=== PATIENT | female | born 1945 | race Hispanic/Latino ===

== ENCOUNTER 2017-03-06 18:00 | Emergency (ER) | payer MEDICARE ==
--- NOTE | 2017-03-06 18:04 | ED PDOC ---
Arrival/HPI - General Time Seen by Provider: 03/06/17 18:01 Historian: Patient, EMS - History of Present Illness Narrative History of Present Illness (Text): 03/06/17 18:01 71 y/o female, pmh including a.fibb/hyperlipidemia/allergic rhinitis, taking coumadin daily with last INR check about 2 weeks ago which was 1.99, nkda, biba c/o lt. knee pain and abrasion x 1 hour. Pt. was walking, tripped over the floor mat, sustained the abrasion of the lt. knee, no direct injury to the rt. knee, no LOC, no head or neck injury, no back injury or pain, no dizziness, no numbness or tingling, no chest pain or palpitation prior to the fall, last tetanus over 10 years ago, no other medical or psychological complaints. Past Medical History - Provider Review Nursing Documentation Reviewed: Yes Family/Social History - Physician Review Nursing Documentation Reviewed: Yes Family/Social History: Unknown Family HX Allergies/Home Meds Allergies/Adverse Reactions: Allergies Penicillins Allergy (Verified 03/06/17 18:03) SWELLING Home Medications: Home Meds Medication Instructions Recorded Confirmed Warfarin [Coumadin] 4 mg PO DAILY 03/06/17 03/06/17 Review of Systems - Review of Systems Constitutional: absent: Fatigue, Fevers Eyes: absent: Vision Changes ENT: absent: Hearing Changes Respiratory: absent: SOB, Cough Cardiovascular: absent: Chest Pain Gastrointestinal: absent: Abdominal Pain, Nausea, Vomiting Musculoskeletal: Arthralgias. absent: Back Pain, Neck Pain, Joint Swelling, Myalgias Skin: Other (abrasion). absent: Rash, Pruritis, Skin Lesions, Laceration, Abscess, Ulcer, Cellulitis Psychiatric: absent: Anxiety, Depression, Suicidal Ideation Physical Exam Vital Signs Temp Pulse Resp BP Pulse Ox 03/06/17 19:14 16 99 03/06/17 18:32 98.4 F 81 16 98 03/06/17 18:04 98.4 F 81 16 137/83 95 - Systems Exam Head: Present: Atraumatic, Normocephalic. No: Tenderness, Contusion, Swelling, Ecchymosis, Abrasion, Laceration, Other Pupils: Present: PERRL Extroacular Muscles: Present: EOMI Conjunctiva: Present: Normal Mouth: Present: Moist Mucous Membranes Nose (External): Present: Atraumatic. No: Abrasion, Contusion, Laceration, Lesions Nose (Internal): Present: Normal Inspection, No Active Bleeding. No: Rhinorrhea , Septal Hematoma, Epistaxis Neck: Present: Normal Range of Motion. No: MIDLINE TENDERNESS, Paraspinal Tenderness Respiratory/Chest: Present: Clear to Auscultation, Good Air Exchange. No: Respiratory Distress, Accessory Muscle Use Cardiovascular: Present: Regular Rate and Rhythm, Normal S1, S2. No: Murmurs Abdomen: Present: Normal Bowel Sounds. No: Tenderness, Distention, Peritoneal Signs Back: Present: Normal Inspection. No: Midline Tenderness, Paraspinal Tenderness Upper Extremity: Present: Normal Inspection, Normal ROM, NORMAL PULSES, Capillary Refill < 2s. No: Cyanosis, Edema, Tenderness, Swelling, Deformity Lower Extremity: Present: Normal Inspection, Normal ROM, Neurovascularly Intact , Other (Bilateral knee: lt. knee anterior noted to have 1cm superficial abrasion in diameter with mild +ttp and mild swelling, rt. knee with no tenderness or swelling, no calf tenderness, no laceration, no joint laxity, FROM without limitation, sensation intact, motor 5/5, neurovascular intact. ). No: Edema, Deformity Neurological: Present: GCS=15, CN II-XII Intact, Speech Normal Skin: Present: Warm, Dry, Normal Color. No: Rashes Psychiatric: Present: Alert, Oriented x 3, Normal Insight, Normal Concentration Medical Decision Making ED Course and Treatment: 03/06/17 18:06 -tetanus -tramadol -wound irrigate with saline, clean with betadine, bacitracin and gauze dressing -lt. knee xray, monserrat wrap applied by me with neurovascular intact. 03/06/17 18:43 -INR 1.96 -Lt. knee xray show no fracture or dislocation -Discharge home with bacitracin oinment, tylenol, monserrat wrap, cane, ice compression, clean with soap and water twice daily, follow up with your own pmd and orthopedic within 2 days, return to the ER for any new or worsening signs or symptoms. Your INR today is 1.96, need to follow up with your own pmd and print decorator within 3 days about this result. - Lab Interpretations Lab Results: Lab Results 03/06/17 18:17: PT 21.2 H, INR 1.96 H I have reviewed the lab results: Yes Interpretation: Abnormal lab values (INR 1.96) - RAD Interpretation Radiology Orders: 03/06/17 18:08 KNEE WITH PATELLA LEFT 3 VIEW [RAD] Stat normal radiograph of the left knee Offset Printing Operator: Radiologist - Medication Orders Current Medication Orders: Discontinued Medications Tetanus/Reduced Diphtheria/Acell Pertussis (Boostrix Vaccine Inj) 0.5 ml IM .ONCE ONE Stop: 03/06/17 18:10 Last Admin: 03/06/17 18:28 Dose: 0.5 ml Tramadol/Acetaminophen (Ultracet 37.5/325 Mg) 2 tab PO STAT STA Stop: 03/06/17 18:09 Last Admin: 03/06/17 18:27 Dose: 2 tab - PA / TAPEMAN / Resident Statement MD/DO has reviewed & agrees with the documentation as recorded. Disposition/Present on Arrival - Present on Arrival Any Indicators Present on Arrival: No History of DVT/PE: No History of Uncontrolled Diabetes: No Urinary Catheter: No History of Decub. Ulcer: No - Disposition Have Diagnosis and Disposition been Completed?: Yes Diagnosis: Accidental fall, Knee abrasion, Knee injury, Subtherapeutic international normalized ratio (INR) Disposition: HOME/ ROUTINE Disposition Time: 18:07 Patient Plan: Discharge Condition: IMPROVED Additional Instructions: Discharge home with bacitracin oinment, tylenol, monserrat wrap, cane, ice compression , clean with soap and water twice daily, follow up with your own pmd and orthopedic within 3 days, return to the ER for any new or worsening signs or symptoms. YOUR INR TODAY IS 1.96 AND YOU NEED TO FOLLOW UP WITH YOUR OWN PMD AND LAMINATION MACHINE OPERATOR IN 3 DAYS. Prescriptions: Acetaminophen [Tylenol 325mg tab] 2 tab PO QID PRN #30 tab PRN Reason: Other Bacitracin Ointment [Bacitracin] 1 appl TOP BID #15 g Referrals: Faustino uBtler MD [Staff Provider] - Follow up with primary Marco Diamond MD [Staff Provider] - Follow up with primary Forms: WORK NOTE
[2017-03-06 18:08] VITALS: BP 137/83; PULSE 81; RESP 16; TEMP 98.4
[2017-03-06] MEDS ORDERED: TraMADol/Apap 37.5/325 mg Tab PO STA (18:08)
[2017-03-06] MEDS ORDERED: TDAP Vaccine 0.5 mL Syr IM ONE (18:09)
[2017-03-06 18:36] LABS: INR 1.96 (0.93-1.08)
[2017-03-06 19:15] VITALS: O2SAT 99
--- NOTE | 2017-03-07 10:29 | RAD ---
PROCEDURE: Left Knee Radiographs. HISTORY: Pain. COMPARISON: None. FINDINGS: BONES: Normal. No fracture. JOINTS: Normal. No osteoarthritis. JOINT EFFUSION: None. OTHER FINDINGS: None. IMPRESSION: Normal radiographs of the left knee.
== END 2017-03-06 19:31 | disposition home or self-care (01) ==
LOC: ED 18:00
DX: S80.212A Abrasion, left knee, initial encounter (principal); S89.92XA Unspecified injury of left lower leg, initial encounter; W18.09XA Striking against other object with subsequent fall, initial encounter; Y93.01 Activity, walking, marching and hiking; I48.91 Unspecified atrial fibrillation; Z79.01 Long term (current) use of anticoagulants; E78.5 Hyperlipidemia, unspecified; Z23 Encounter for immunization